=== PATIENT | male | born 1990 | race Two or more races ===

== ENCOUNTER 2021-05-01 04:09 | Emergency (ER) | payer BC ==
[2021-05-01] MEDS ORDERED: Albuterol 0.083% 2.5 MG/3 ML Neb Soln ONE (04:14)
[2021-05-01] MEDS ORDERED: Acetaminophen/Codeine 300-30 MG Tab PO ONE (04:26)
--- NOTE | 2021-05-01 04:26 | EDM.PDOC ---
ED HPI GENERAL MEDICAL PROBLEM - General Chief Complaint: Respiratory Problem Stated Complaint: TROUBLE BREATHING Time Seen by Provider: 05/01/21 04:17 Source of Information: Reports: Patient History Limitations: Reports: No Limitations - History of Present Illness INITIAL COMMENTS - FREE TEXT/NARRATIVE: Patient is a 30-year-old male who presents today for shortness of breath. Patient states that he was diagnosed with bronchitis a few days ago and this morning he woke up while sleeping with difficult breathing. States his chest feels like it is tight and taking the area. States been coughing for the past few days and now he has pain in his chest with coughing. Denies any chest pain with ambulation or movement. States cough is dry nonproductive. Denies any fevers chills sick contacts. Denies any other complaints. Bilateral Chest Pain Score (Numeric/FACES): 4 - Related Data Allergies Allergy/AdvReac Type Severity Reaction Status Date / Time No Known Allergies Allergy Verified 05/01/21 04:10 Past Medical History - Infectious Disease History Infectious Disease History: Reports: Chicken Pox Social & Family History - Family History Family Medical History: No Pertinent Family History - Tobacco Use Tobacco Use Status *Q: Former Tobacco User Used Tobacco, but Quit: Yes Month/Year Tobacco Last Used: 02/25 - Caffeine Use Caffeine Use: Reports: Coffee - Recreational Drug Use Recreational Drug Use: No ED ROS GENERAL - Review of Systems Review Of Systems: See Below Constitutional: Reports: No Symptoms HEENT: Reports: No Symptoms Respiratory: Reports: Shortness of Breath, Cough Cardiovascular: Reports: No Symptoms Endocrine: Reports: No Symptoms GI/Abdominal: Reports: No Symptoms : Reports: No Symptoms Musculoskeletal: Reports: No Symptoms Skin: Reports: No Symptoms Neurological: Reports: No Symptoms Psychiatric: Reports: No Symptoms Hematologic/Lymphatic: Reports: No Symptoms Immunologic: Reports: No Symptoms ED EXAM, GENERAL - Physical Exam Exam: See Below Exam Limited By: No Limitations General Appearance: Alert, WD/WN, No Apparent Distress Eye Exam: Bilateral Eye: EOMI, PERRL Head: Atraumatic Neck: Normal Inspection Respiratory/Chest: No Respiratory Distress, Lungs Clear, Normal Breath Sounds Cardiovascular: Normal Peripheral Pulses, Regular Rate, Rhythm, No Edema GI/Abdominal: Normal Bowel Sounds, Soft, Non-Tender Neurological: Alert, Oriented Course - Vital Signs Last Recorded V/S: Last Vital Signs Temp 96.9 F 05/01/21 04:11 Pulse 89 05/01/21 05:21 Resp 16 05/01/21 05:21 BP 129/83 05/01/21 05:21 Pulse Ox 95 05/01/21 05:21 - Orders/Labs/Meds Orders: Active Orders 24 hr Category Date Time Status RT Aerosol Therapy [RC] ASDIRECTED Care 05/01/21 04:32 Active Labs: Laboratory Tests 05/01/21 05/01/21 05/01/21 Range/Units 04:20 04:20 04:20 WBC 13.32 H (4.0-11.0) K/uL RBC 5.01 (4.50-5.90) M/uL Hgb 15.6 (13.0-17.0) g/dL Hct 46.9 (38.0-50.0) % MCV 93.6 (80.0-98.0) fL MCH 31.1 (27.0-32.0) pg MCHC 33.3 (31.0-37.0) g/dL RDW Std Deviation 47.6 (28.0-62.0) fl RDW Coeff of Odalys 14 (11.0-15.0) % Plt Count 315 (150-400) K/uL MPV 9.20 (7.40-12.00) fL Neut % (Auto) 50.6 (48.0-80.0) % Lymph % (Auto) 28.2 (16.0-40.0) % Stanislaus % (Auto) 7.2 (0.0-15.0) % Eos % (Auto) 13.5 H (0.0-7.0) % Baso % (Auto) 0.5 (0.0-1.5) % Neut # (Auto) 6.8 H (1.4-5.7) K/uL Lymph # (Auto) 3.8 H (0.6-2.4) K/uL Stan[place]aus # (Auto) 1.0 H (0.0-0.8) K/uL Eos # (Auto) 1.8 H (0.0-0.7) K/uL Baso # (Auto) 0.1 (0.0-0.1) K/uL Nucleated RBC % 0.0 /100WBC Nucleated RBCs # 0 K/uL Sodium 141 (136-148) mmol/L Potassium 3.9 (3.5-5.1) mmol/L Chloride 104 (98-107) mmol/L Carbon Dioxide 26.4 (21.0-32.0) mmol/L BUN 11 (7.0-18.0) mg/dL Creatinine 1.1 (0.8-1.3) mg/dL Est Cr Clr Drug Dosing 87.81 mL/min Estimated GFR (MDRD) > 60.0 ml/min Glucose 103 (74-106) mg/dL Calcium 8.8 (8.5-10.1) mg/dL SARS-CoV-2 RNA (NAMITA) NEGATIVE (NEGATIVE) Meds: Medications Discontinued Medications Generic Name Dose Route Start Last Admin Trade Name Zion PRN Reason Stop Dose Admin Acetaminophen/Codeine Phosphate 1 tab 05/01/21 04:26 05/01/21 04:30 Acetaminophen/Codeine 300-30 Mg Tab PO 05/01/21 04:27 1 tab ONETIME ONE Administration Albuterol Confirm 05/01/21 04:14 05/01/21 04:32 Albuterol 0.083% 2.5 Mg/3 Ml Neb Soln Administered 05/01/21 04:15 Not Given Dose 2.5 mg .ROUTE .STK-MED ONE Albuterol 2.5 mg 05/01/21 04:31 05/01/21 04:33 Albuterol 0.083% 2.5 Mg/3 Ml Neb Soln NEB 05/01/21 04:32 2.5 mg ONETIME ONE Administration - Re-Assessments/Exams Free Text/Narrative Re-Assessment/Exam: 05/01/21 05:40 Patient's coughing is improved. As well as the shortness of breath. Patient was placed on nasal cannula by nursing staff for comfort. I turned the is can often patient oxygen level remains above 95%. Patient is a smoker. Patient states he feels a lot better. He already has antibiotics and steroids at home from his bronchitis diagnosis. We will send patient home with cough medicine. Departure - Departure Time of Disposition: 05:41 Disposition: Home, Self-Care 01 Condition: Good Clinical Impression: Cough variant asthma - Discharge Information *PRESCRIPTION DRUG MONITORING PROGRAM REVIEWED*: Not Applicable *COPY OF PRESCRIPTION DRUG MONITORING REPORT IN PATIENT MANE: Not Applicable Instructions: Acute Bronchitis, Adult, [id number] Forms: ED Department Discharge Additional Instructions: The following information is given to patients seen in the emergency department who are being discharged to home. This information is to outline your options for follow-up care. We provide all patients seen in our emergency department with a follow-up referral. The need for follow-up, as well as the timing and circumstances, are variable depending upon the specifics of your emergency department visit. If you don't have a primary care physician on staff, we will provide you with a referral. We always advise you to contact your personal physician following an emergency department visit to inform them of the circumstance of the visit and for follow-up with them and/or the need for any referrals to a consulting specialist. The emergency department will also refer you to a specialist when appropriate. This referral assures that you have the opportunity for follow-up care with a specialist. All of these measure are taken in an effort to provide you with optimal care, which includes your follow-up. Under all circumstances we always encourage you to contact your private physician who remains a resource for coordinating your care. When calling for follow-up care, please make the office aware that this follow-up is from your recent emergency room visit. If for any reason you are refused follow-up, please contact the [facility] part[facility] at and asked to speak to the emergency department charge nurse. Please follow up with your primary care physician. If you do not have a primary care physician, see below: [facility] [address] [place] [id number] [facility] [address] [place] [address] You were seen today for cough and shortness of breath. We did an x-ray and also tested for Covid which were both negative. You already have antibiotics at home and steroids from your previous diagnosis of bronchitis from the urgent care. We will send you home with cough medicine to help out with your coughing. If you have any other concerning signs or symptoms please return to the ED otherwise follow-up to primary care physician. Sepsis Event Note (ED) - Evaluation Sepsis Screening Result: No Definite Risk - Focused Exam Vital Signs: Vital Signs Temp Pulse Resp BP Pulse Ox 07/25/21 05:21 89 16 129/83 95 05/01/21 04:41 102 H 22 H 142/94 H 93 L 05/01/21 04:11 96.9 F 108 H 22 H 171/103 H 95 - My Orders Last 24 Hours: My Active Orders 05/01/21 04:32 RT Aerosol Therapy [RC] ASDIRECTED - Assessment/Plan Last 24 Hours: My Active Orders 05/01/21 04:32 RT Aerosol Therapy [RC] ASDIRECTED Plan: Patient is a 30-year-old male who presents today for cough and shortness of breath. Patient on exam has no noticeable wheezing but is coughing nonstop. Will obtain x-ray labs Covid test and reassess patient.
[2021-05-01] MEDS ORDERED: Albuterol 0.083% 2.5 MG/3 ML Neb Soln NEB ONE (04:31)
[2021-05-01 04:39] LABS: BLOOD UREA NITROGEN,BUN 11 mg/dL (7.0-18.0); CARBON DIOXIDE,CO2 26.4 mmol/L (21.0-32.0); CHLORIDE,CL 104 mmol/L (98-107); GLUCOSE RANDOM 103 mg/dL (74-106); POTASSIUM,K 3.9 mmol/L (3.5-5.1); SODIUM,NA 141 mmol/L (136-148)
--- NOTE | 2021-05-01 05:07 | CR ---
HISTORY: Cough COMPARISON: None available FINDINGS: A portable erect AP view of the chest was obtained at 0431 hours. The lungs are clear. No focal or diffuse infiltrates are present. The heart is normal in size. Note is made of a right-sided aortic arch. The mediastinum is otherwise normal in appearance. The situs is solitus. The osseous structures are normal in appearance for the patient`s age. IMPRESSION: Right-sided aortic arch. Otherwise no active disease seen in the chest. Dictated by Gaurav Mata MD @ 05/01/2021 5:05:[address] Gaurav Mata @ May 01 2021 5:05AM
== END 2021-05-01 06:02 | disposition home or self-care (01) ==
LOC: MW.ED 04:09
DX: J45.909 Unspecified asthma, uncomplicated (principal); Z20.822 Contact with and (suspected) exposure to COVID-19; Z87.891 Personal history of nicotine dependence
CPT/HCPCS: 36415; 71045; 80048; 85025; 87635; 99285; A9270; U0002